=== PATIENT | female | born 1950 | race Caucasian/White ===

== ENCOUNTER 2017-03-04 10:18 | Outpatient (CLI) | payer MEDICARE, OTHER ==
[~2017-03-04] VITALS: Ht 175.3 cm; Wt 122.8 kg
--- NOTE | ~2017-03-04 | HEMODYNAMI ---
PATIENT:GUERRERO HUNG MEDICAL RECORD: [id number] : 52 LOCATION:[facility] ADMISSION DATE: 03/04/17 Generatedon:03/04/201713:45 Patient name: GUERRERO HUNG Patient #: [id number] SSN: D OB: 1950 Date of study: 03/04/2017 Page: Of Hemodynamic Procedure Report Patient Data Patient Demographics Procedure consent was obtained First Name: GUERRERO Gender: Female Last Name: ANABELL : 1950 Middle Initial: REINALDO Age: 66 year(s) Patient #: [id number] Race: Unknown Additional ID: [id number] Contact details Address: [place] [address] State: [place] City: [place] Zip code: [address] Past Medical History Allergies: No known allergies Admission Admission Data Admission Date: 03/04/2017 Admission Time: 10:18 Height (in.): 70 BSA: 2.39 (m2) Height (cm.): 177.8 BMI: 39.31 (kg/m2) Weight (lbs.): 274 Weight (kg.): 124.28 Lab Results Lab Result Date: 03/04/2017 Lab Result Time: 0:00 Biochemistry Name Units Result Min Max BUN mg/dl 23 --(----)-* 7 18 Creatinine mg/dl 0.6 --(*---)-- 0.6 1.3 CBC Name Units Result Min Max Hemoglobin g/dl 14.8 --(-*--)-- 13.5 17.5 Procedure Procedure Types Cath Procedure Diagnostic Procedure LHC LHC w/Coronaries Miscellaneous Procedures Moderate Sedation up to 30 minutes Procedure Description Procedure Date Procedure Date: 03/04/2017 Procedure Start Time: 13:14 Procedure End Time: 13:43 Procedure Staff Name Function Gil Pitts MD Performing Physician Katia Conley RT Monitor Mellissa Waggoner RT Scrub Crystal Ho RN Nurse Lillie Manuel RN Nurse Procedure Data Cath Procedure Fluoroscopy Diagnostic fluoroscopy Total fluoroscopy Time: time: 11.4 min 11.4 min Diagnostic fluoroscopy Total fluoroscopy dose: dose: 1572 mGy 1572 mGy Contrast Material Contrast Material Type Amount (ml) Isovue 300 95 Entry Location Entry Primary Successful Side Size Upsize Upsize Entry Closure Gray ccessful Closure Location (Fr) 1 (Fr) 2 (Fr) Remarks Device Remarks Radial Right 6 Fr Mechanical artery Short Compression Estimated blood loss: 5 ml Diagnostic catheters Device Type Used For End Catheter Placement DIAGNOSTIC [place] 110cm 5 Multi-vessel Fr catheter ([id number]) Angiography DIAGNOSTIC Harry 110cm Multi-vessel 5Fr catheter (697503) Angiography DIAGNOSTIC MPA-2 5Fr Left Coronary catheter ([id number]) Angiography Procedure Complications No complications Procedure Medications Medication Administration Route Dosage 0.9% NaCl I.V. 100 ml/hr Oxygen NC 2 l/min Lidocaine 2% added to field 20 Heparin Flush Bag added to field 2 bags (1000units/500ml NS) Radial Cocktail added to field 1 syringe (Verapomil 2mg/Nitro 400mcg/Heparin 1500units) Versed I.V. 1 mg Fentanyl I.V. 50 mcg Fentanyl I.V. 50 mcg Versed I.V. 1 mg Fentanyl I.V. 100 mcg Versed I.V. 2 mg Hemodynamics Rest BSA: 2.39 (m2) HGB: 14.8 (g/dl) O2 Consumption: Estimated: 228.99 (ml/min) O2 Co nsumption indexed: Estimated:95.81 (ml/min/m) Heart Rate: 76 (bpm) Pressure Samples Time Site Value (mmHg) Purpose Heart Use Rate(bpm) 13:27 LV 126/-4,-4 Snapshot 79 Gradients Valve Time Site Site Mean SEP/DFP Peak To Heart Use 1 2 (mmHg) (sec/min) Peak Rate (mmHg) (bpm) Aortic 13:28 LV AO 49 Snapshots Pre Cath Intra NCS Post Cath Vital Signs Time Heart Resp SPO2 NIBP (mmHg) Rhythm Pain Sedation Rate (ipm) (%) Status Level (bpm) 12:44:02 71 15 98 157/90(114) NSR 0 (11) 10(A) , No pain 12:48:24 72 16 96 159/84(118) NSR 0 (11) 10(A) , No pain 12:52:42 75 14 95 150/90(111) NSR 0 (11) 10(A) , No pain 12:57:06 68 21 96 150/76(111) NSR 0 (11) 10(A) , No pain 13:01:27 73 14 96 150/80(121) NSR 0 (11) 10(A) , No pain 13:05:47 75 16 94 156/83(113) NSR 0 (11) 10(A) , No pain 13:10:05 76 21 95 148/82(112) NSR 0 (11) 10(A) , No pain 13:14:21 76 16 95 150/84(109) NSR 0 (11) 10(A) , No pain 13:18:41 75 16 96 148/86(108) NSR 0 (11) 10(A) , No pain 13:22:55 83 22 96 132/81(112) NSR 0 (11) 9(A) , No pain 13:27:11 79 16 97 144/82(115) NSR 0 (11) 10(A) , No pain 13:31:27 78 15 96 145/79(106) NSR 0 (11) 9(A) , No pain 13:35:51 81 17 94 139/75(106) NSR 0 (11) 9(A) , No pain 13:40:09 82 16 94 138/81(130) NSR 0 (11) 10(A) , No pain 13:44:28 78 10 95 147/82(110) NSR 0 (11) 10(A) , No pain Medications Time Medication Route Dose Verified Delivered Reason Notes Effectiveness by by 12:42:14 0.9% NaCl I.V. 100ml/hr Gil Moreira used for [facility] Jv Manuel RN procedure 12:42:24 Oxygen NC 2 l/min Gil Moreira Per [facility] J[facility] Manuel RN physician 12:42:35 Lidocaine 2% added 20ml Gil Cordero used for to vial [facility] procedure field MD SAVAGE 12:42:49 Heparin Flush added 2 bags Gil Cordero used for Bag to [facility] procedure (1000units/500ml field MD SAVAGE NS) 12:43:01 Radial Cocktail added 1 Gil Cordero for (Verapomil to syringe Abanda Abanda vasodilation 2mg/Nitro field MD SAVAGE 400mcg/Heparin 1500units) 13:12:41 Versed I.V. 1 mg Gil Lillie for sedation [facility] Manuel RN, MD 13:12:48 Fentanyl I.V. 50 mcg Gil Wadefany for sedation [facility] RN, MD 13:14:02 Fentanyl I.V. 50 mcg Gil Moreira for sedation [facility] RN, MD 13:14:09 Versed I.V. 1 mg Gil Wadefany for sedation [facility] Manuel RN, MD 13:16:22 Fentanyl I.V. 100 mcg Gil Wadefany for sedation [facility] J[facility] Manuel RN, MD 13:19:45 Versed I.V. 2 mg Gil Lillie for sedation [facility] Manuel RN, MD Procedure Log Time Note 12:24:38 Patient Height : 70 inches 12:24:44 Patient Weight : 274 lbs 12:25:59 Diagnostic Cath status Elective 12:27:56 Katia Conley RT(R) sent for patient. Start room use. 12:28:03 Time tracking: Regular hours 12:28:08 Plan of Care:Hemodynamics will remain stable., Cardiac rhythm will remain stable., Comfort level will be maintained., Respiratory function will remain adequate., Patient/ family verbilizes understanding of procedure., Procedure tolerated without complication., Recovers from procedure without complications.. 12:36:29 Patient received from Pre/Post Procedure Room to CCL 2 Alert and oriented. Tansferred to table in Supine position. 12:36:31 Warm blankets applied, and cristy hugger turned on for patient comfort. 12:36:31 Correct patient and procedure confirmed by team. 12:36:33 Signed procedure consent form obtained from patient. 12:36:34 ECG and BP/O2 sat monitors applied to patient. 12:40:43 H&P Date Dictated: 02/06/2017 Within 30 days and on chart., H&P Addendum completed by physician on day of procedure. (MUST COMPLETE FOR ALL OUTPATIENTS). 12:40:46 Pre-procedure instructions explained to patient. 12:40:48 Family in waiting room. 12:40:49 Patient NPO since Midnight. 12:40:56 Patient allergic to No known allergies 12:40:59 Is the patient allergic to Iodine/contrast media? No. 12:41:00 Was the patient premedicated? Yes 12:41:02 Is patient on blood thinner?Yes 12:41:05 ACC The patient was administered the following blood thiners within the last 24 hours: ACCAspirin 12:41:07 Patient diabetic? No. 12:41:11 Snore? Yes 12:41:13 Sleep apnea? No 12:41:22 Airway obstruction? Yes Asthma 12:41:33 IV patent on arrival in right forearm with 0.9% NaCl at [facility]. 12:42:14 0.9% NaCl 100ml/hr I.V. was administered by Lillie Manuel RN; used for procedure; 12:42:23 Lab Result : Creatinine 0.6 mg/dl 12::23 Lab Result : BUN 23 mg/dl 12:42:23 Lab Result : Hemoglobin 14.8 g/dl 12:42:24 Oxygen 2 l/min NC was administered by Lillie Manuel RN; Per physician; 12:42:27 Lab results completed and on chart. 12:42:31 Right Radial & Right Groin area was prepped with chlora-prep and draped in sterile fashion 12:42:34 Sharps counted by scrub and verified by R.N. 12:42:35 Lidocaine 2% 20ml vial added to field was administered by Gil Pitts MD; used for procedure; 12:42:49 Heparin Flush Bag (1000units/500ml NS) 2 bags added to field was administered by Gil Pitts MD; used for procedure; 12:42:53 Vital chart was started 12:43:01 Radial Cocktail (Verapomil 2mg/Nitro 400mcg/Heparin 1500units) 1 syringe added to field was administered by Gil Pitts MD; for vasodilation; 12:43:01 Baseline sample Acquired. 12:43:05 Full Disclosure recording started 12:46:54 Deviated septum? No 12:46:54 Opens mouth fully? Yes 12:46:55 Sticks out tongue? Yes 12:46:57 Dentures? No ? 12:47:01 Pre procedure: right dorsailis pedis pulse 1+ Palpable, but thready & weak; easily obliterated 12:47:03 Pre procedure: left dorsailis pedis pulse 1+ Palpable, but thready & weak; easily obliterated 13:04:16 Physician paged 13:11:48 Physician arrived 13:11:49 --------ALL STOP TIME OUT------ 13:11:50 Final Timeout: patient, procedure, and site verified with staff and physician. All members of the team are in agreement. 13:12:07 Right Radial & Right Groin site verified by team. 13:12:11 Physical assessment completed. ASA score P 2 - A patient with mild systemic disease as per Gil Pitts MD. 13:12:14 Sedation plan: IV Moderate Sedation Medication:Versed, Fentanyl 13:12:41 Versed 1 mg I.V. was administered by Lillie Manuel RN; for sedation; 13:12:48 Fentanyl 50 mcg I.V. was administered by Lillie Manuel RN; for sedation; 13:14:02 Fentanyl 50 mcg I.V. was administered by Lillie Manuel RN; for sedation; 13:14:09 Versed 1 mg I.V. was administered by Lillie Manuel RN; for sedation; 13:14:36 Use device set Radial Dx or PCI 13:14:37 ACIST Syringe (65792) opened to sterile field. 13:14:37 Medline Cath Pack ([id number]) opened to sterile field. 13:14:38 Bag Decanter (2002) opened to sterile field. 13:14:39 SHEATH 6FR Slender ([id number]) opened to sterile field. 13:14:39 DIAGNOSTIC WIRE .035 260cm J wire (734511) opened to sterile field. 13:14:40 ACIST Hand Control (27885) opened to sterile field. 13:14:41 ACIST Manifold (53542) opened to sterile field. 13:14:42 MBrace Wrist Support ([id number]) opened to sterile field. 13:14:49 Procedure started. 13:14:54 Local anesthetic to right radial artery with Lidocaine 2% by Gil Pitts MD.INITIAL ACCESS ONLY 13:16:22 Fentanyl 100 mcg I.V. was administered by Lillie Manuel RN; for sedation; 13:17:39 A 6 Fr Short sheath was inserted into the Right Radial artery 13:18:18 A DIAGNOSTIC [place] 110cm 5 Fr catheter (155405) was advanced over the wire and used for Multi-vessel Angiography. 13:19:45 Versed 2 mg I.V. was administered by Lillie Manuel RN; for sedation; 13:21:33 GLIDE WIRE ANGLE 260cm (EY3559) opened to sterile field. 13:24:21 Catheter removed. 13:25:00 GUIDE 6FR AR 1.0 catheter ([id number]) opened to sterile field. 13:25:45 RCA angiography performed. 13:25:47 Injector settings: Ml/sec: 3, Volume: 6, 13:26:03 Catheter removed. 13:27:34 A DIAGNOSTIC Harry 110cm 5Fr catheter (684137) was advanced over the wire and used for Multi-vessel Angiography. 13:28:04 LV hemodynamics recorded. 13:28:05 LV gram done using GRULLON 13:28:08 Injector settings: Ml/sec: 5, Volume: 15, 13:28:50 EF : 55 % 13:32:27 GUIDE 6FR EBU 3.5 catheter ([id number]) opened to sterile field. 13:35:41 Guide Catheter removed. unable to cannulate vessel. 13:37:25 A DIAGNOSTIC MPA-2 5Fr catheter (653106H) was advanced over the wire and used for Left Coronary Angiography. 13:38:15 LCA angiography performed. 13:38:24 Injector settings: Ml/sec: 3, Volume: 6, 13:40:47 Catheter removed. 13:41:45 TR BAND Standard ([id number]) opened to sterile field. 13:42:24 Sheath removed intact; hemostasis achieved with Mechanical Compression to the Right Radial artery. 13:42:26 Procedure ended.(Physican Out) 13:42:38 Fluoroscopy time 11.40 minutes. 13:42:45 Fluoroscopy dose: 1572 mGy 13:42:45 Flurop Dose total: 1572 13:42:50 Contrast amount:Isovue 300 95ml. 13:42:51 Sharps counted by scrub and verified by R.N. 13:42:54 TR band inflated with 10cc of air. 13:42:56 Insertion/operative site no bleeding no hematoma. 13:43:01 Post right radial artery:stable 13:43:04 Post Procedure Pulses reassessed and unchanged 13:43:07 Post procedure rhythm: unchanged. 13:43:10 Estimated blood loss: 5 ml 13:43:21 Post procedure instruction explained to patient.Patient verbalizes understanding. 13:43:22 Patient needs reinforcement of post procedure teaching. 13:43:35 Procedure type changed to Cath procedure, Diagnostic procedure, LHC, LHC w/Coronaries, Miscellaneous Procedures, Moderate Sedation up to 30 minutes 13:43:36 Procedure and supply charges have been captured, reviewed, submitted and are correct. 13:43:41 Procedure Complication : No complications 13:43:43 Vital chart was stopped 13:43:43 See physician's report for complete and final results. 13:43:46 Report given to Pre/Post Procedure Room. 13:43:48 Patient transfered to Pre/Post Procedure Room with Stretcher. 13:43:50 Procedure ended. 13:43:50 Full Disclosure recording stopped 13:44:09 End room use (Document Last) Device Usage Item Name Manufacture Quantity Catalog Hospital Part Current Minima l Lot# / Number Charge Number Stock Stock Serial# Code ACIST Acist 1 56781 [id number] 908818 200840 20 Syringe Medical (51654) Systems Inc Medline Cath Cardinal 1 [id number] 407203 56916 972695 5 Pack [facility] ([id number]) Bag Decanter Microtek 1 2001S 831667 42282 856398 5 (2001S) Medical Inc. SHEATH 6FR Terumo 1 [id number] 338363 008381 923813 40 Slender ([id number]) DIAGNOSTIC St Cedric 1 580711 734892 138982 326625 30 WIRE .035 260cm J wire (893820) ACIST Hand Acist 1 13157 790749 259767 105775 5 Control Medical (96278) Systems Inc ACIST Acist 1 48013 555601 312960 918891 5 Manifold Medical (94840) Systems Inc MBrace Wrist Advanced 1 140-0250-00 355776 34268 704922 5 Support Vascular ([id number]) Dynamics DIAGNOSTIC Terumo 1 40-3208 172301 938674 627203 5 [place] 110cm 5 Fr catheter (334985) GLIDE WIRE Terumo 1 YU3601 852538 550227 740473 5 ANGLE 260cm (RY2747) GUIDE 6FR AR Medtronic 1 [id number] 841686 35200 691130 1 1.0 catheter ([id number]) DIAGNOSTIC Terumo 1 08-2166 047389 204072 419490 5 Harry 110cm 5Fr catheter (729567) GUIDE 6FR Medtronic 1 [id number] 214422 49225 340896 3 EBU 3.5 catheter ([id number]) DIAGNOSTIC Cardinal 1 [id number] 430796 339807 832754 5 MPA-2 5Fr Health catheter (654577R) TR BAND Terumo 1 [id number] 786209 240412 915615 40 Standard ([id number]) Signature Audit [place] Stage Time Signature Unsigned Intra-Procedure 03/04/2017 Katia Conley 1:44:49 PM RT(R) Signatures Monitor : Katai Conley RT Signature : Date : Time : [place] [id number] [place] [address]
--- NOTE | ~2017-03-04 | OP ---
PATIENT NAME: GUERRERO HUNG MEDICAL RECORD: [id number] :52 LOCATION:D.[facility] ADMISSION DATE: SURGEON: NAM GIVENS MD DATE OF OPERATION: 03/04/2017 PROCEDURE: 1. Left heart catheterization. 2. Right femoral artery approach. CATHETERS: A 5-Wolof sheath, 5/4 left and right Malini, 5/4 pig. The procedure was well tolerated and the patient returned to the oneil, sheath removed. TR band was placed. FINDINGS: Left ventriculography 30-degree GRULLON view: Normal wall motion, normal systolic function. CORONARY ANATOMY. LEFT MAIN: Left main is free of disease. LAD: Free of disease in the diagonal system. CIRCUMFLEX: Free of disease in the marginal system. RIGHT CORONARY ARTERY: Dominant artery, gives rise to PDA, free of disease. IMPRESSION: Normal systolic function. Normal coronary anatomy. TRANSINT:[id number] Voice Confirmation ID: [id number] DOCUMENT ID: [id number] NAM GIVENS MD at 1337 CC: [id number] DICTATION DATE: 03/04/17 1353 MATERIALS PLANNER/PRODUCTION PLANNER: 03/04/17 1501 DEP CLI 03/04/17 [facility] [address] [facility] [place] [address]
[2017-03-04] MEDS ORDERED: LIPITOR10 MG PO (10:42)
[2017-03-04] MEDS ORDERED: VITAMIN D31000 UNIT PO (10:42)
[2017-03-04] MEDS ORDERED: FUROSEMIDE40 MG PO (10:43)
[2017-03-04] MEDS ORDERED: EFFEXOR XR150 MG PO (10:43)
[2017-03-04] MEDS ORDERED: TEMAZEPAM30 MG PO (10:44)
[2017-03-04] MEDS ORDERED: CALAN SR240 MG PO (10:44)
[2017-03-04] MEDS ORDERED: PHENERGAN25 M1 PO (10:45)
[2017-03-04] MEDS ORDERED: ACCUPRIL40 MG PO (10:45)
[2017-03-04] MEDS ORDERED: CELEBREX200 MG PO (10:46)
[2017-03-04] MEDS ORDERED: LINZESS290 MCG PO (10:46)
[2017-03-04] MEDS ORDERED: SINGULAIR10 MG PO (10:46)
[2017-03-04] MEDS ORDERED: PROTONIX40 MG PO (10:47)
[2017-03-04] MEDS ORDERED: KLOR-CON 1010 MEQ PO (10:47)
[2017-03-04] MEDS ORDERED: BAYER CHEWABLE81 MG PO (10:47)
[2017-03-04 10:52] VITALS: BP 160/86; Ht 175.3 cm; Wt 122.8 kg
[2017-03-04 11:18] LABS: BASOPHILS 0.2 % (0-2); EOSINOPHILS 2.3 % (0-7); HEMOGLOBIN 14.8 g/dL (12-16); IMMATURE GRANULOCYTES 0.7 % (0-5); LYMPHOCYTES 11.6 % (15-50); MCH 28.6 pg (26.0-34.0); MCHC 32.9 g/dL (31.0-37.0); MCV 86.9 fL (80.0-100.0); MEAN PLATELET VOLUME 10.7 fL (7.4-10.4); MONOCYTES 9.6 % (2-11); NEUTROPHILS 75.6 % (40-80); PLATELET COUNT 250 10x3/uL (130-400); RBC 5.18 10x6/uL (4.00-5.40); RDW 13.7 % (11.5-14.5); WBC 10.8 10x3/uL (4.8-10.8)
[2017-03-04 11:35] LABS: CALC OSMOLALITY 285 mosm/kg (275-300); CALCIUM 9.3 mg/dL (8.5-10.1); CHLORIDE - SERUM 106 mmol/L (98-107); CREATININE - SERUM 0.6 mg/dL (0.6-1.3); GLUCOSE 120 mg/dL (74-106); POTASSIUM - SERUM 4.3 mmol/L (3.5-5.1); SODIUM 141 mmol/L (136-145); UREA NITROGEN 23 mg/dL (7-18); eGFR NON AFRICAN AMERICAN > 90 mL/min (90-120)
== END 2017-03-04 16:45 | disposition home or self-care (01) ==
LOC: D.CATH 10:18
PROVIDERS: Internal Medicine Interventional Cardiology
DX: I20.9 Angina pectoris, unspecified (principal); R94.31 Abnormal electrocardiogram [ECG] [EKG]